=== PATIENT | female | born 1965 | race Caucasian/White ===

== ENCOUNTER 2021-12-20 09:03 | Emergency (ER) | payer MEDICARE ==
[2021-12-20 09:46] LABS: HEMOGLOBIN 11.4 gm/dl (12.3-15.3); RED BLOOD COUNT 4.04 M/UL (4.00-5.10); WHITE BLOOD COUNT 6.1 K/UL (4.5-11.0)
[2021-12-20 10:09] LABS: BUN/CREATININE RATIO 17 (0-10)
== END 2021-12-20 11:30 | disposition home or self-care (01) ==
LOC: ER1 09:03
PROVIDERS: Emergency Medicine
DX: R55 Syncope and collapse (principal); F15.90 Other stimulant use, unspecified, uncomplicated; K21.9 Gastro-esophageal reflux disease without esophagitis
CPT/HCPCS: 80048; 84484; 85025; 93005; 99284